=== PATIENT | male | born 1970 | race Caucasian/White ===

== ENCOUNTER 2018-05-18 17:30 | Emergency (ER) | payer BC, OTHER ==
[~2018-05-18] VITALS: Ht 175.3 cm; Wt 101.2 kg
[2018-05-18 17:34] VITALS: TEMP 36.7; Ht 175.3 cm; Wt 101.2 kg
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
[2018-05-18] MEDS ORDERED: PROAIR INH (18:51)
[2018-05-18] MEDS ORDERED: FLUT0.15 NAE (18:51)
[2018-05-18 19:23] VITALS: BP 122/80; PULSE 70; O2SAT 96
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
== END 2018-05-18 19:23 | disposition home or self-care (01) ==
LOC: C.EDB 17:32 → C.EDD 19:23
DX: M54.2 Cervicalgia (principal); M54.6 Pain in thoracic spine; V43.53XA Car driver injured in collision with pick-up truck in traffic accident, initial encounter; Y92.410 Unspecified street and highway as the place of occurrence of the external cause; Z79.899 Other long term (current) drug therapy